=== PATIENT | female | born 1950 | race Two or more races ===

== ENCOUNTER 2019-03-01 18:16 | Emergency (ER) | payer OTHER ==
[~2019-03-01 18:16] MED LIST: LEVO75TA PO
--- NOTE | 2019-03-01 19:07 | NUR ---
CALLED TO PT TO TRIAGE AREA NO ANSWER.
--- NOTE | 2019-03-01 19:12 | NUR ---
PT LEFT WITHOUT BEING TRIAGE, CHARGE NURSE AWARE.
== END 2019-03-01 19:11 | disposition left against medical advice (07) ==
LOC: ER 18:20
DX: Z53.21 Procedure and treatment not carried out due to patient leaving prior to being seen by health care provider (principal)